=== PATIENT | female | born 1985 | race Caucasian/White ===

== ENCOUNTER → 2018-05-05 | Day surgery (SDC) | payer BC ==
[~2018-05-05] MED LIST: BUPIVACAINE HCL 0.5% INJ 30 ML VIAL INJ ONE; CEFAZOLIN SOD 1 GM/D5W 50ML 50 ML IV ONE; CYMBALTA30 MG; DEXAMETHASONE SOD PHOS INJ 4 MG/ML VIAL ONE; FENTANYL CITRATE/PF 100MCG/2 ML INJ ONE; KETOROLAC TROMETHAMINE 30 MG/ML VIAL ONE; LIDOCAINE HCL 2% LOCAL INJ 5 ML SDV VIAL INJ ONE; MIDAZOLAM HCL 2 MG/2 ML VIAL ONE; NEOSTIGMINE 1 MG/ML 10ML VIAL ONE; ONDANSETRON HCL INJ 2 MG/ML VIAL ONE; PROPOFOL IV EMULSION 10 MG/ML 20 ML VIAL ONE; SEVOFLURANE INHAL SOLN 250 ML PEN BTL ONE
--- OUTSIDE RECORDS SUMMARY | 2018-05-05 06:37 | XMS REPORT ---
Author Author [facility] Address Unknown Phone Unavailable Care Team Providers Care Temperature Regulator Name Role Phone Unavailable Unavailable Problems This patient has no known problems. Allergies, Adverse Reactions, Alerts This patient has no known allergies or adverse reactions. Medications This patient has no known medications.
--- NOTE | 2018-05-05 10:53 | Operative Report ---
DATE OF PROCEDURE: May 05, 2018 PREOPERATIVE DIAGNOSES 1. Left plantar fasciitis. 2. Calcaneal exostosis, left foot. POSTOPERATIVE DIAGNOSES 1. Left plantar fasciitis. 2. Calcaneal exostosis, left foot. PROCEDURES 1. Endoscopic plantar fasciotomy with removal of bone spur, left foot. 2. Application of posterior splint, left foot. 3. Use of human allograft to prevent adhesions and to promote healing to the area. COMPLICATIONS: None. CONDITION: Stable. ANESTHESIA: General anesthetic with a local block. PROCEDURE IN DETAIL: Under mild sedation, the patient was brought to the operating room and placed on the operating table in the supine position. Following IV sedation, anesthesia was obtained with a general anesthetic. At this point, the left foot was scrubbed, prepped and draped in the usual aseptic manner. It was then lowered to the table. A pneumatic ankle tourniquet was inflated to 250 mmHg and the leg was lowered to the table. Endoscopic plantar fasciotomy, left foot. Attention was then directed to the medial aspect of the left foot where a linear incision was made overlying the plantar fascia. The incision was deepened via sharp and blunt dissection down to the level of the fascia. The fascia isolator was then used. A trocar and cannula were inserted. The trocar was removed. The camera was inserted. Medial, central and lateral bands were then visualized. Utilizing a fascial blade, medial and central bands were transected through and through leaving the lateral band intact. All instruments were removed. Attention was directed to the medial aspect of the left foot where under the use of intraop fluoroscopy with sharp and blunt dissection, the calcaneal spur was then isolated. The intraop fluoroscopy was then used in order to isolate the plantar spur. Utilizing the power bur, the plantar spur was removed. All instruments were removed and then passed from the operating table. The area was then flushed with copious amounts of normal sterile saline solution. Use of human allograft 2 x 4 was then entered into the plantar fascia to prevent adhesions and to promote healing and to decrease the inflammatory response. The area was then closed closing with 4-0 nylon. A clean dressing was applied consisting of Adaptic, 4 x 4's, Kerlix, Webril, and a posterior splint was applied, and it was secured utilizing an Van bandage. The tourniquet was deflated. There was noted to be hyperemic response to all the digits. The patient tolerated the procedure and anesthesia well without complications. Was transported to the recovery room with vital signs stable and vascular status intact to both feet. The patient will be discharged home when meets criteria. Was given instructions to be nonweightbearing, to ice and elevate the foot while at rest, and to follow up with me in the office. Call the office for any questions, concerns or any problems arise. Job#: [id number] HERBIE
[2018-05-05 11:00] VITALS: BP 104/63
== END | disposition home or self-care (01) ==
LOC: OR 06:35
PROVIDERS: ATTEND Podiatrist Foot & Ankle Surgery
DX: M72.2 Plantar fascial fibromatosis (principal); M77.32 Calcaneal spur, left foot; F32.9 Major depressive disorder, single episode, unspecified
CPT/HCPCS: 28119; 76000; 81025; J0690; J1100; J1885; J2001; J2250; J2405; J2704; J2710; Q4150